=== PATIENT | female | born 2000 | race African-American/Black ===

== ENCOUNTER 2021-11-23 19:25 | Emergency (ER) | payer MEDICAID ==
[~2021-11-23] VITALS: Ht 170.2 cm; Wt 72.7 kg
[2021-11-23] MEDS ORDERED: IBUP-2070 PO (21:40)
[2021-11-23 21:45] VITALS: BP 119/74
== END 2021-11-23 22:03 | disposition home or self-care (01) ==
LOC: EMS 19:26
DX: S92.422A Displaced fracture of distal phalanx of left great toe, initial encounter for closed fracture (principal); W20.8XXA Other cause of strike by thrown, projected or falling object, initial encounter; Y93.89 Activity, other specified; Y92.89 Other specified places as the place of occurrence of the external cause; Y99.8 Other external cause status
CPT/HCPCS: 99283